=== PATIENT | female | born 1945 | race American Indian/Alaskan Native ===

== ENCOUNTER 2017-01-15 09:27 | Day surgery (SDC) | payer MEDICARE ==
[~2017-01-15 09:27] MED LIST: ANCEF/STERILE WATER 2 GM/20 ML IV NR
[2017-01-15] MEDS ORDERED: NACL 0.9% 1000 ML 1,000 ML IV SCH (10:00)
[2017-01-15] MEDS ORDERED: PEPCID PO NR (10:00)
[2017-01-15] MEDS ORDERED: ZOFRAN IV PRN (11:31)
--- NOTE | 2017-01-15 11:31 | Anesthesia Day of Surgery ---
Anesthesia Day of Surgery - Day of Surgery Patient Examined: Yes Patient H&P Reviewed: Yes Patient is NPO: Yes Beta Blockers: Yes (took atenolol this am)
--- NOTE | 2017-01-15 11:31 | Anesthesia Consultation ---
Anesthesia Consult and Med Hx Date of service: 01/15/17 - Airway Anesthetic Teeth Evaluation: Edentulous ROM Head & Neck: Adequate Mental/Hyoid Distance: Adequate Mallampati Class: Class II Intubation Access Assessment: Probably Good - Pulmonary Exam CTA: Yes - Cardiac Exam Cardiac Exam: RRR - Pre-Anesthesia Comment Pre-Anesthesia Comments: only has a single tooth. Has 3/6 systolic murmur which she has had as long as she can remember. 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
[2017-01-15] MEDS ORDERED: XYLOCAINE 1% 20 mL ONE (11:46)
[2017-01-15] MEDS ORDERED: MARCAINE-EPI 0.25%-1:200,000 INFILTRATI ONE ×2 (11:46→12:53)
[2017-01-15] MEDS ORDERED: SUBLIMAZE ONE (12:34)
[2017-01-15] MEDS ORDERED: DIPRIVAN 10 MG/ML IV ONE (12:34)
[2017-01-15] MEDS ORDERED: XYLOCAINE MPF 2% ONE (12:34)
[2017-01-15] MEDS ORDERED: XYLOCAINE 1% 20 mL INFILTRATI ONE (12:52)
[2017-01-15] MEDS ORDERED: NACL 0.9% IR ONE (12:53)
--- NOTE | 2017-01-15 13:06 | Operative Report ---
Operative Report Operative Report: Date of procedure 01/15/2017 Preoperative diagnosis mall functioning [id number] Postoperative diagnosis - same --- Operative procedure-removal of malfunctioning [id number] Anesthesia local Mac Surgeon Deacon Don Specimens none Indications -71-year-old female with history of ovarian cancer had an Infuse-a- Port inserted through the right internal jugular vein more than 20 half years ago. She is in remission does not require the port anymore. To prevent any further complications of leaving the port in place she is brought in for removal of the port Procedure -after satisfactory IV sedation right infraclavicular and supraclavicular areas were prepped and draped. After infiltrating local anesthesia consisting of Marcaine and lidocaine transverse incision was made over the scar of previous surgery and the skin tag was removed. Subcutaneous tissue was divided. The catheter was identified and was gently pulled out from the neck. Pressure was applied over the incision site in the neck for 2-3 minutes and no hematoma was noted. The fiber sheath around the port was sharply divided and the port was removed intact. The sheath was approximated with 20 Vicodin. Subcutaneous tissue approximated with 30 Vicodin skin with 40 Vicryls sutures. She tolerated the procedure well----
--- NOTE | 2017-01-15 13:07 | Post Operative Note ---
Pre-op diagnosis: Malfunctioning inf port Post-op diagnosis: same Findings: as above Procedure: Removal of infuse a port Anesthesia: MAC Surgeon: KEYONA CANNON Estimated blood loss: minimal Pathology: none Condition: stable Disposition: PACU
--- NOTE | 2017-01-15 13:10 | Discharge Summary ---
Short Stay Discharge Plan Weight Bearing Status: Full Weight Bearing Diet: regular Wound: open to air Follow up with: KELLEY MONACO MD [Primary Care Provider] - 7 Days Prescriptions: traMADol [Ultram 50 MG tab] 50 mg PO Q4HR PRN #20 tablet PRN Reason: Pain
--- NOTE | 2017-01-15 15:31 | Post Anesthesia Evaluation ---
- Post Anesthesia Evaluation Patient Participated: Yes Airway Patent: Yes Stable Respiratory Function: Yes Nausea/Vomiting: No Temp > 96.8F: Yes Pain Manageable: Yes Adequeate Hydration: Yes Anesthesia Complications: No Block Receding Appropriately: Not Applicable Patient on Ventilator: No
[2017-01-15 16:02] VITALS: BP 151/83
== END 2017-01-15 13:43 | disposition home or self-care (01) ==
LOC: OR 09:27
PROVIDERS: ATTEND Surgery
DX: T82.598A Other mechanical complication of other cardiac and vascular devices and implants, initial encounter (principal); E10.9 Type 1 diabetes mellitus without complications; I10 Essential (primary) hypertension; K21.9 Gastro-esophageal reflux disease without esophagitis; E03.9 Hypothyroidism, unspecified; E66.9 Obesity, unspecified; Z68.36 Body mass index [BMI] 36.0-36.9, adult; Z85.43 Personal history of malignant neoplasm of ovary; Z86.73 Personal history of transient ischemic attack (TIA), and cerebral infarction without residual deficits; Z90.710 Acquired absence of both cervix and uterus; Z98.890 Other specified postprocedural states; Z79.899 Other long term (current) drug therapy; Z79.4 Long term (current) use of insulin; Z88.0 Allergy status to penicillin; Z88.8 Allergy status to other drugs, medicaments and biological substances; Z91.09 Other allergy status, other than to drugs and biological substances; Z80.3 Family history of malignant neoplasm of breast; Y83.8 Other surgical procedures as the cause of abnormal reaction of the patient, or of later complication, without mention of misadventure at the time of the procedure
CPT/HCPCS: 36590; 82962; J0690; J2704; J3010; J7030

== ENCOUNTER 2017-11-21 00:32 | Emergency (ER) | payer MEDICARE ==
--- NOTE | 2017-11-21 01:23 | Emergency Department Report ---
ED General Adult HPI - General Chief complaint: Cardiac Arrest/CPR Stated complaint: CARDIAC ARREST Time Seen by Provider: 11/21/17 00:54 Source: family, EMS Mode of arrival: Stretcher Limitations: Other - History of Present Illness Initial comments: Patient is a 72-year-old female past medical history of diabetes who is presenting cardiac arrest. Patient's family states that she was not feeling well all day. Patient supposedly called her sister earlier in the afternoon stating she has some chest pain and was not feeling well. When the patient's daughter and son arrived to the house patient was going back for between [facility] and not. Patient took 15 units of her insulin and because she didn't feel much better assume that her sugar may have been elevated into 10 more. Patient family after the patient started lying down and got back up stating that she couldn't breathe and called 911. Paramedics arrived on scene and stated that initially the patient was speaking however she then went into cardiopulmonary arrest. CPR was initiated prior to arrival. The patient was intubated with 7.5 endotracheal tube. No IV access was able to be obtained on the route. There is a 15 minute down time approximately before her arrival to our emergency department. - Related Data Home Medications Medication Instructions Recorded Confirmed Last Taken Atenolol 50 mg PO DAILY 02/16/14 01/09/17 01/15/17 06:30 Clonidine HCl [Catapres] 0.15 mg PO DAILY 02/16/14 01/09/17 01/15/17 06:30 Furosemide 40 mg PO BID 02/16/14 01/09/17 01/14/17 Losartan/Hydrochlorothiazide 1 tab PO BID 02/16/14 01/09/17 01/14/17 [Losartan-Hctz 50-12.5 mg Tab] Phenytoin Sodium Extended 300 mg PO QDAY 02/16/14 01/09/17 01/14/17 Potassium Chloride [K-Dur] 10 meq PO DAILY 02/16/14 01/09/17 01/14/17 Simvastatin 20 mg PO DAILY 02/16/14 01/09/17 01/14/17 Fluconazole [Diflucan ORAL SOLN] 100 mg PO QDAY 01/09/17 01/09/17 01/14/17 HYDROcodone/APAP 10-325 [[place] 1 each PO Q6HR PRN 0701/09/17 01/14/17 10-325 mg TAB] Insulin Glargine [Lantus VIAL] 10 unit SUB-Q QHS 01/09/17 01/09/17 01/14/17 Insulin Lispro [Humalog 100 0 units SQ AC 01/09/17 01/09/17 01/14/17 UNITS/ML Kwikpen] Megestrol [Megace] 20 mg PO DAILY 01/09/17 01/09/17 01/14/17 Nystatin [Nystatin SUSP] 5 ml PO QID 01/09/17 01/09/17 01/14/17 Previous Rx's Medication Instructions Recorded Last Taken Type traMADol [Ultram 50 MG tab] 50 mg PO Q4HR PRN #20 tablet 01/15/17 Unknown Rx Allergies Allergy/AdvReac Type Severity Reaction Status Date / Time paclitaxel [From Taxol] Allergy Anaphylaxis Verified 01/09/17 14:32 Penicillins Allergy Unknown Verified 01/09/17 14:32 adhesive AdvReac Rash Verified 02/22/14 09:33 ED Review of Systems ROS: Stated complaint: CARDIAC ARREST Other details as noted in HPI Comment: Unobtainable due to pts medical conditions ED Past Medical Hx - Past Medical History Previous Medical History?: Yes Hx Hypertension: Yes Hx Heart Attack/AMI: No Hx Diabetes: Yes Hx GERD: Yes (occasionally) Hx Liver Disease: No Hx Renal Disease: No Hx Asthma: No Hx COPD: No Hx HIV: No - Surgical History Past Surgical History?: Yes - Social History Smoking Status: Never Smoker - Medications Home Medications: Home Medications Medication Instructions Recorded Confirmed Last Taken Type Atenolol 50 mg PO DAILY 02/16/14 01/09/17 01/15/17 06:30 History Clonidine HCl [Catapres] 0.15 mg PO DAILY 02/16/14 01/09/17 01/15/17 06:30 History Furosemide 40 mg PO BID 02/16/14 01/09/17 01/14/17 History Losartan/Hydrochlorothiazide 1 tab PO BID 02/16/14 01/09/17 01/14/17 History [Losartan-Hctz 50-12.5 mg Tab] Phenytoin Sodium Extended 300 mg PO QDAY 02/16/14 01/09/17 01/14/17 History Potassium Chloride [K-Dur] 10 meq PO DAILY 02/16/14 01/09/17 01/14/17 History Simvastatin 20 mg PO DAILY 02/16/14 01/09/17 01/14/17 History Fluconazole [Diflucan ORAL SOLN] 100 mg PO QDAY 01/09/17 01/09/17 01/14/17 History HYDROcodone/APAP 10-325 [[place] 1 each PO Q6HR PRN 01/09/17 01/09/17 01/14/17 History 10-325 mg TAB] Insulin Glargine [Lantus VIAL] 10 unit SUB-Q QHS 01/09/17 01/09/17 01/14/17 History Insulin Lispro [Humalog 100 0 units SQ AC 01/09/17 01/09/17 01/14/17 History UNITS/ML Kwikpen] Megestrol [Megace] 20 mg PO DAILY 01/09/17 01/09/17 01/14/17 History Nystatin [Nystatin SUSP] 5 ml PO QID 01/09/17 01/09/17 01/14/17 History traMADol [Ultram 50 MG tab] 50 mg PO Q4HR PRN #20 tablet 01/15/17 Unknown Rx ED Physical Exam - General Limitations: Other General appearance: obtunded - Head Head exam: Present: atraumatic, normocephalic - Eye Eye exam: Present: other (pupils are fixed and dilated) - ENT ENT exam: Present: mucous membranes moist - Respiratory Respiratory exam: Present: other (there are no spontaneous breath sounds. Coarse breath sounds bagging and pink frothy sputum in the endotracheal tube) - Cardiovascular Cardiovascular Exam: Present: other (no spontaneous heart sounds) - GI/Abdominal GI/Abdominal exam: Present: soft, distended - Skin Skin exam: Present: warm, dry, intact ED Medical Decision Making - Medical Decision Making Please see nursing documentation regarding code sheet. A interosseous line was placed by me in the right anterior zavala secondary to poor IV access. Several rounds of epinephrine and bicarbonate were given. Patient's blood sugar just prior to arrival was in the 200 range. Patient was pronounced here in emergency department. Critical care attestation.: If time is entered above; I have spent that time in minutes in the direct care of this critically ill patient, excluding procedure time. ED Disposition Clinical Impression: Cardiopulmonary arrest Disposition: [id number] Is pt being admited?: No Does the pt Need Aspirin: No Condition: Stable Referrals: PRIMARY CARE, [Primary Care Provider] - 3-5 Days
== END 2017-11-21 02:30 ==
LOC: ED 00:32
DX: I46.9 Cardiac arrest, cause unspecified (principal); I10 Essential (primary) hypertension; E11.9 Type 2 diabetes mellitus without complications; K21.9 Gastro-esophageal reflux disease without esophagitis; Z88.0 Allergy status to penicillin; Z88.8 Allergy status to other drugs, medicaments and biological substances
CPT/HCPCS: 99285